=== PATIENT | male | born 1960 | race Native Hawaiian/Other Pacific Islander ===

== ENCOUNTER 2016-11-07 16:28 | Emergency (ER) | payer SELFPAY ==
[2016-11-07 16:50] VITALS: BP 145/89
--- NOTE | 2016-11-07 19:22 | XRay Report ---
FINAL REPORT EXAM: XR FOOT 3+V LT HISTORY: injury after reconstructive surgery TECHNIQUE: Left foot three views PRIORS: None. FINDINGS: There has been arthrodesis at the midfoot. Surgical screws are present with surgical plates bridging the 1st through 3rd metatarsal tarsal joints. Hardware is intact. There is cortical irregularity at the head of the 3rd metatarsal. This appears corticated and most likely chronic. Please correlate clinically. No additional focal bony abnormality identified. Remaining joint spaces appear within normal limits. IMPRESSION: Cortical irregularity at the head of the 3rd metatarsal. This appears corticated and most likely chronic. Please correlate with clinical findings Postoperative changes as noted above arthrodesis at the midfoot.
--- NOTE | 2016-11-07 19:24 | Emergency Department Report ---
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 Patient states since Sunday is at some aching/throbbing pain in his left foot area. Patient states he has some pain with weightbearing. Patient states pain starts at the bottom of his foot radiates to his ankles. He denies calf pain, fever, chills, nausea, vomiting, and had a problem ED Past Medical Hx - Past Medical History Previous Medical History?: Yes Hx Hypertension: Yes Hx Liver Disease: Yes (cirrohis) Hx Psychiatric Treatment: Yes (PTSD) Additional medical history: degenerative disk dz.; HEP C; Cirrohis - Surgical History Hx Cholecystectomy: Yes Hx Appendectomy: Yes Additional Surgical History: "left foot sx" - Social History Smoking Status: Current Every Day Smoker Substance Use Type: Alcohol - Medications Home Medications: Home Medications Medication Instructions Recorded Confirmed Last Taken Type Cephalexin [Keflex] 1,000 mg PO BID #28 capsule 10/26/15 Unknown Rx HYDROcodone/APAP 5-325 [Dana 1 each PO Q6HR PRN #16 tablet 10/26/15 Unknown Rx 5-325 mg TAB] Cyclobenzaprine [Flexeril] 10 mg PO QHS PRN #24 tablet 11/07/16 Unknown Rx Diclofenac Potassium 50 mg PO BID #40 tablet 11/07/16 Unknown Rx ED Review of Systems ROS: Stated complaint: L FOOT PAIN Other details as noted in HPI Constitutional: denies: chills, fever Eyes: denies: eye pain, eye discharge, vision change ENT: denies: ear pain, throat pain Respiratory: denies: cough, shortness of breath, wheezing Cardiovascular: denies: chest pain, palpitations Endocrine: no symptoms reported Gastrointestinal: denies: abdominal pain, nausea, diarrhea Genitourinary: denies: urgency, dysuria Musculoskeletal: denies: back pain, joint swelling, arthralgia Skin: denies: rash, lesions Neurological: denies: headache, weakness, paresthesias Psychiatric: denies: anxiety, depression Hematological/Lymphatic: denies: easy bleeding, easy bruising Physical Exam - Physical Exam Vital Signs: Vital Signs 11/07/16 16:45 Temperature 98.4 F Pulse Rate 94 H Respiratory 20 Rate Blood Pressure 145/89 O2 Sat by Pulse 100 Oximetry Physical Exam: GENERAL: Alert and oriented x3, no apparent distress, Normal Gait, atraumatic. HEAD: Head is normocephalic and a-traumatic. EYES: Extra ocular muscles are intact. Pupils are equal, round, and reactive to light and accommodation. NECK: Supple. Non edematous, No carotid bruits. No lymphadenopathy or thyromegaly. No C-spine tenderness LUNGS: Symetrical with respiration, No wheezing, no rales or crackles, CTAB. HEART: S1, S2 present, regular rate and rhythm without murmur, no rubs, no gallops. Non tender to palpation EXTREMITIES/MUSCULOSKELETAL: No cyanosis, clubbing, rash, lesions or edema. Full ROM bilaterally. UE/LE Pulses 2+ bilaterally. LE and UE 5+ strength bilaterally, straight leg raise negative bilaterally. No calf tenderness bilaterally, left ankle and foot joints intact, no edema, no bleeding, moderate tenderness to palpation. Surgical scars on the left anterior foot NEUROLOGIC: The patient is cooperative with no focal neurologic deficits. Cranial nerves II through XII are grossly intact. Normal speech. . Normal sensation in bilateral lower extremities, No loss of sensation, SKIN: Warm and dry, No lesions, No ulceration or induration present. ED Course Vital Signs 11/07/16 16:45 Temperature 98.4 F Pulse Rate 94 H Respiratory 20 Rate Blood Pressure 145/89 O2 Sat by Pulse 100 Oximetry ED Medical Decision Making - Medical Decision Making 56-year-old male presents with foot arthralgia ED course: Discussed the patient sent patient home with trial of muscle relaxant and face. He agrees with this plan. Discussed patient to rest foot and keep it elevated for the next day or so discuss heat therapy to foot 3 times a day. Vital signs are stable patient is no acute distress. Foot was Tian wrapped. Discussed with patient if worsening symptoms or new symptoms arise to return to ED for evaluation. Critical care attestation.: If time is entered above; I have spent that time in minutes in the direct care of this critically ill patient, excluding procedure time. ED Disposition Clinical Impression: Arthralgia of foot, left Strain of foot, left Qualifiers: Encounter type: initial encounter Qualified Code(s): S96.912A - Strain of unspecified muscle and tendon at ankle and foot level, left foot, initial encounter Disposition: TO HOME OR SELFCARE Is pt being admited?: No Does the pt Need Aspirin: No Condition: Stable Instructions: Arthralgia (ED), Heat Pack Application (ED) Prescriptions: Cyclobenzaprine [Flexeril] 10 mg PO QHS PRN #24 tablet PRN Reason: Muscle Spasm Diclofenac Potassium 50 mg PO BID #40 tablet Referrals: PRIMARY MD ARIELLE [Primary Care Provider] - 3-5 Days LENY GONZALEZ MD [Referring] - 3-5 Days [facility] [Outside] - 3-5 Days [facility] [Outside] - 3-5 Days Forms: Work/School Release Form(ED) Time of Disposition: 19:30
== END 2016-11-07 20:02 | disposition home or self-care (01) ==
LOC: ED 16:28
DX: S96.912A Strain of unspecified muscle and tendon at ankle and foot level, left foot, initial encounter (principal); I10 Essential (primary) hypertension; F17.200 Nicotine dependence, unspecified, uncomplicated; X50.1XXA Overexertion from prolonged static or awkward postures, initial encounter; Y93.89 Activity, other specified; Y99.9 Unspecified external cause status; Y92.89 Other specified places as the place of occurrence of the external cause